=== PATIENT | female | born 2000 | race Caucasian/White ===

== ENCOUNTER 2022-03-03 23:51 | Day surgery (SDC) | payer OTHER ==
[~2022-03-03] VITALS: Ht 152.4 cm; Wt 59.9 kg
[~2022-03-03 23:51] MED LIST: FOLIC ACID20 MG PO; PRENATAL + DHA1 EAC1 PO
[2022-03-04] MEDS ORDERED: PERCOCET 5-3251 EACH PO (17:40)
[2022-03-04] MEDS ORDERED: IBU800 MG PO (17:40)
[2022-03-04] MEDS ORDERED: COLACE100 MG PO (17:40)
== END 2022-03-04 18:17 | disposition home or self-care (01) ==
LOC: ER 23:51 → CIR.AMB 23:51 → ER 03-04 00:53 → O/R 03-04 00:53 → OB/GYN 03-04 04:02 → O/R 03-04 04:02 → CIR.AMB 03-04 18:17 → OB/GYN 03-04 18:39
PROVIDERS: ATTEND Specialist
DX: O00.102 Left tubal pregnancy without intrauterine pregnancy (principal); F12.90 Cannabis use, unspecified, uncomplicated; Z20.822 Contact with and (suspected) exposure to COVID-19